=== PATIENT | female | born 1945 | race Caucasian/White ===

== ENCOUNTER 2023-01-10 09:21 | Day surgery (SDC) | payer MEDICARE, SELFPAY ==
[2023-01-04 14:06] VITALS: BMI 29.2
--- NOTE | 2023-01-07 08:11 | MHC.SHP ---
Pre-Procedural Eval Section A Date of Service: 01/07/23 The patient is an INPATIENT: No Changes since office visit: No Cold of Flu in the past 2 weeks, No New Medical Problems, No Changes in Medication and No Patient answered all questions The History & Physical has been completed within 30 days and I have reviewed it.: Yes Section B Chief Complaint: Age-related nuclear cataract, right eye Allergies: Allergies Allergy/AdvReac Type Severity Reaction Status Date / Time tetracycline AdvReac Intermediate vomiting/di Verified 01/04/23 14:06 arrhea Plan Diagnosis/Plan: Unchanged I have reviewed the history and physical and performed a pertinent physical examination on my patient. No changes have occurred unless specified. Time Spent With Patient Time: Total time managing care of this patient today ____ minutes.
--- NOTE | 2023-01-07 09:33 | HO.ANESPROP2 ---
Documented by User: Jayne Zhang NP 01/07/23 09:35 HPI - Anesthesia Eval Consult details Narrative: 77yo F for Right Cataract Multifocal with IOL Insertion PCP cleared No previous cataract on record PMFSH Past Medical History Medical History Anxiety Breast cancer Elevated cholesterol Heartburn Herpes zoster retinitis HTN (hypertension) Hx of sigmoidoscopy IBS (irritable bowel syndrome) Insomnia Osteopenia Surgical History Surgical History H/O colonoscopy History of lumpectomy of left breast Hx of abdominal hysterectomy Hx of dilation and curettage Social History Social History Are you a primary health and social care teacher to a significant other at home: No Do you presently have visiting nurse or other home services: No Patient Tobacco Use Status: Never used Tobacco Use of substances other than those prescribed or required for medical reasons: No Have you been hit, kicked, punched, or otherwise hurt by someone within the past year? If so, by whom?: No Are you DNR?: Yes Advance Directives Information Provided: Yes (advised to bring copies DOS for [facility] [place] Advance Directives on File: No Recently lost weight without trying: No Eating poorly because of decreased appetite: No Nutrition Risks: No Nutritional Risk Poor oral hygiene: No Meds Allergies Allergy/AdvReac Type Severity Reaction Status Date / Time tetracycline AdvReac Intermediate vomiting/di Verified 01/04/23 14:06 arrhea Home Medications Medication Instructions Recorded Confirmed Last Taken Type amlodipine 5 mg tablet 5 mg PO DAILY 12/24/22 01/04/23 Unknown History coenzyme Q10 100 mg capsule (Co 100 mg PO DAILY 12/24/22 01/04/23 Unknown History Q-10) fluticasone propionate 50 1 spray intranasal BID 12/24/22 01/04/23 Unknown History mcg/actuation nasal spray,suspension lorazepam 0.5 mg tablet 0.5 mg PO BID 12/24/22 01/04/23 Unknown History omeprazole 20 mg capsule,delayed 20 mg PO DAILY 12/24/22 01/04/23 Unknown History release raloxifene 60 mg tablet (Evista) 60 mg PO DAILY 12/24/22 01/04/23 Unknown History Exam Exam Date and Time: January 07, 2023 0933 Height,Weight and Vital Signs: Height 5 ft 4 in Weight 77.111 kg Assessment and Plan Assessment Anesthesia Assessment: Chart Reviewed Documented by User: Yovani Shay MD 01/10/23 10:56 [facility] Past Medical History Medical History Anxiety Breast cancer Elevated cholesterol Heartburn Herpes zoster retinitis HTN (hypertension) Hx of sigmoidoscopy IBS (irritable bowel syndrome) Insomnia Osteopenia Family History Family history of problems with anesthesia: No Surgical History Surgical History H/O colonoscopy History of lumpectomy of left breast Hx of abdominal hysterectomy Hx of dilation and curettage History of Problems with Anesthesia: No Social History Social History Are you a primary health and social care teacher to a significant other at home: No Do you presently have visiting nurse or other home services: No Patient Tobacco Use Status: Never used Tobacco Use of substances other than those prescribed or required for medical reasons: No Have you been hit, kicked, punched, or otherwise hurt by someone within the past year? If so, by whom?: No Are you DNR?: Yes Advance Directives Information Provided: Yes (advised to bring copies DOS for [facility] [place]) Advance Directives on File: No Recently lost weight without trying: No Eating poorly because of decreased appetite: No Nutrition Risks: No Nutritional Risk Poor oral hygiene: No Meds Allergies Allergy/AdvReac Type Severity Reaction Status Date / Time tetracycline AdvReac Intermediate vomiting/di Verified 01/04/23 14:06 [facility] Home Medications Medication Instructions Recorded Confirmed Last Taken Type amlodipine 5 mg tablet 5 mg PO DAILY 12/24/22 01/04/23 Unknown History coenzyme Q10 100 mg capsule (Co 100 mg PO DAILY 12/24/22 01/04/23 Unknown History Q-10) fluticasone propionate 50 1 spray intranasal BID 12/24/22 01/04/23 Unknown History mcg/actuation nasal spray,suspension lorazepam 0.5 mg tablet 0.5 mg PO BID 12/24/22 01/04/23 Unknown History omeprazole 20 mg capsule,delayed 20 mg PO DAILY 12/24/22 01/04/23 Unknown History release raloxifene 60 mg tablet (Evista) 60 mg PO DAILY 12/24/22 01/04/23 Unknown History Exam Airway Mallampati Class: II TM Dist: >3cm Neck ROM: Full Loose/Missing/Broken Teeth: No Heart: rrr+[id number] Lungs: cta b/l Assessment and Plan Assessment Anesthesia Assessment: Anesthesia Plan Discussed Final Anesthetic Review Family History of Problems with Anesthesia: No History of Problems with Anesthesia: No NPO: Yes ASA Class: III Final Preanesthetic Review: No Changes in Pt Med Stat, Meds/Allgs Chart Reviewed, Consent Obtained/Reviewed, Anes Risks/Benef Reviewed and DNR Form (If Appl.) Patient Risk: Intermediate Procedure Risk: Low Assessment/Block/Sedation in SS: Assess/Block/Sedation-SS Anesthetic Plan Anesthetic Plan: MAC: and Agree w/ Assess. and Plan Disposition: Standard PACU
[2023-01-10 10:56] VITALS: BP 166/77; PULSE 102; RESP 18; TEMP 36.7; O2SAT 98
[2023-01-10] MEDS: Lactated Ringers 500 ML 50 ML IV (10:58)
[2023-01-10] MEDS: Tropicamide 1 % Ophth Sol 3 ML BTL 1 DROP EYE-RIGHT ×3 (11:00→11:05)
[2023-01-10] MEDS: Tetracaine HCl/PF 0.5% Oph Sol 4 ML DROPS 1 DROP EYE-RIGHT (11:00)
[2023-01-10] MEDS: Phenylephrine HCL 2.5% Oph SoL 2 ML BOTTLE 1 DROP EYE-RIGHT ×3 (11:00→11:04)
[2023-01-10] MEDS: Cyclopentolate 1 % Ophth Sol 2 ML DRPBTL 1 DROP EYE-RIGHT ×3 (11:00→11:05)
[2023-01-10] MEDS: Ketorolac Tromethamine 0.5% Op 5 ML DROPS 1 DROP EYE-RIGHT ×3 (11:00→11:04)
--- NOTE | 2023-01-10 11:34 | HO.PNOPHT ---
Ophthalmology Procedure Procedure Date of Service: 01/10/23 Ophthalmology Viscoelastic: Tommy Morint Dual Pack Pro Ophthalmology Lenses: TECMILDRED [id number] (24) Procedure Notes: PREOPERATIVE DIAGNOSIS: Decreased visual acuity right eye secondary to cataract POSTOPERATIVE DIAGNOSIS: Same PROCEDURE: Right cataract extraction with intraocular lens insertion SURGEON: Akil Stanton M.D. ANESTHESIA: Topical/MAC ESTIMATED BLOOD LOSS: None COMPLICATIONS: None After obtaining informed consent, the patient was brought to the operating room suite and placed in the supine position. After adequate sedation per anesthesia, topical drops of Tetracaine were given to the right eye. The eye was then prepped and draped in the usual sterile fashion. The operating room microscope was then positioned over the operative eye and a lid speculum placed. A paracentesis was created. Viscoelastic was then instilled into the anterior chamber. A three plane incision was then created temporally, utilizing a 2.85 mm keratome. Capsulotomy forceps were then utilized to create a circular tear capsulotomy. Hydrodissection and hydrodelineation were carried out until adequate mobilization of the nucleus occurred. Phacoemulsification was then utilized to remove the dense central nucleus followed by removal of the cortical material utilizing the automated aspiration irrigation unit. Viscoelastic was instilled into the posterior capsular bag followed by placement of a posterior chamber intraocular lens without difficulty. The residual Viscoelastic was then removed utilizing the automated IA machine. The wound was checked and found to be watertight. The patient tolerated the procedure well and the lid speculum was removed. Intracameral injection of Vigamox 0.1 mL followed by a subtenon injection of Kenalog-40 0.2 mL were administered. The patient will be seen in the a.m.
[2023-01-10 11:56] VITALS: BP 145/71; PULSE 89; RESP 16; TEMP 36.2; O2SAT 97
== END 2023-01-10 11:59 | disposition home or self-care (01) ==
PROVIDERS: PCP Family Medicine; Visit Provider Ophthalmology
PROC: (CPT 66985; principal; 2023-01-10 12:30)
DX: H25.11 Age-related nuclear cataract, right eye (principal); H52.4 Presbyopia; H40.051 Ocular hypertension, right eye; H17.9 Unspecified corneal scar and opacity; E78.00 Pure hypercholesterolemia, unspecified; I10 Essential (primary) hypertension; C50.412 Malignant neoplasm of upper-outer quadrant of left female breast; Z17.1 Estrogen receptor negative status [ER-]; M19.90 Unspecified osteoarthritis, unspecified site; M81.0 Age-related osteoporosis without current pathological fracture; L71.9 Rosacea, unspecified; F41.1 Generalized anxiety disorder; Z79.810 Long term (current) use of selective estrogen receptor modulators (SERMs); Z79.51 Long term (current) use of inhaled steroids; Z79.899 Other long term (current) drug therapy; Z88.1 Allergy status to other antibiotic agents; H18.413 Arcus senilis, bilateral
CPT/HCPCS: 66984; J2250; J3301; V2632

== ENCOUNTER 2023-01-24 09:27 | Day surgery (SDC) | payer MEDICARE, SELFPAY ==
[2023-01-04 14:08] VITALS: BMI 29.2
--- NOTE | 2023-01-20 14:59 | P.CONAN_ITS ---
Documented by User: Jayne Zhang NP 01/20/23 15:00 HPI - Anesthesia Eval Consult details Narrative: 77yo F for Left Cataract Multifocal with IOL Insertion PCP cleared Right eye 01/10/23 with MAC: midaz 1 PMFSH Past Medical History Medical History Anxiety Breast cancer Elevated cholesterol Heartburn Herpes zoster retinitis HTN (hypertension) Hx of sigmoidoscopy IBS (irritable bowel syndrome) Insomnia Osteopenia Family History Family history of problems with anesthesia: No Surgical History Surgical History H/O colonoscopy History of lumpectomy of left breast Hx of abdominal hysterectomy Hx of dilation and curettage History of Problems with Anesthesia: No Social History Social History Are you a primary adult care provider to a significant other at home: No Do you presently have visiting nurse or other home services: No Patient Tobacco Use Status: Never used Tobacco Use of substances other than those prescribed or required for medical reasons: No Have you been hit, kicked, punched, or otherwise hurt by someone within the past year? If so, by whom?: No Are you DNR?: Yes Advance Directives Information Provided: Yes (advised to bring copies DOS for [facility] chart) Advance Directives on File: No Recently lost weight without trying: No Eating poorly because of decreased appetite: No Nutrition Risks: No Nutritional Risk Poor oral hygiene: No Meds Allergies Allergy/AdvReac Type Severity Reaction Status Date / Time tetracycline AdvReac Intermediate vomiting/di Verified 01/24/23 09:50 arrhea Home Medications Medication Instructions Recorded Confirmed Last Taken Type amlodipine 5 mg tablet 5 mg PO DAILY 12/24/22 01/04/23 01/24/23 History coenzyme Q10 100 mg capsule (Co 100 mg PO DAILY 12/24/22 01/04/23 Unknown History Q-10) fluticasone propionate 50 1 spray intranasal BID 12/24/22 01/04/23 Unknown History mcg/actuation nasal spray,suspension lorazepam 0.5 mg tablet 0.5 mg PO BID 12/24/22 01/04/23 01/24/23 History omeprazole 20 mg capsule,delayed 20 mg PO DAILY 05/01/04/23 01/24/23 History release raloxifene 60 mg tablet (Evista) 60 mg PO DAILY 12/24/22 01/04/23 Unknown History Exam Exam Date and Time: January 20, 2023 145 Height,Weight and Vital Signs: Height 5 ft 4 in Weight 77.111 kg Assessment and Plan Assessment Anesthesia Assessment: Chart Reviewed Final Anesthetic Review Family History of Problems with Anesthesia: No History of Problems with Anesthesia: No Documented by User: Ben Wilks MD 01/24/23 10:02 [facility] Past Medical History Medical History Anxiety Breast cancer Elevated cholesterol Heartburn Herpes zoster retinitis HTN (hypertension) Hx of sigmoidoscopy IBS (irritable bowel syndrome) Insomnia Osteopenia Surgical History Surgical History H/O colonoscopy History of lumpectomy of left breast Hx of abdominal hysterectomy Hx of dilation and curettage Social History Social History Are you a primary adult care provider to a significant other at home: No Do you presently have visiting nurse or other home services: No Patient Tobacco Use Status: Never used Tobacco Use of substances other than those prescribed or required for medical reasons: No Have you been hit, kicked, punched, or otherwise hurt by someone within the past year? If so, by whom?: No Are you DNR?: Yes Advance Directives Information Provided: Yes (advised to bring copies DOS for [facility] chart) Advance Directives on File: No Recently lost weight without trying: No Eating poorly because of decreased appetite: No Nutrition Risks: No Nutritional Risk Poor oral hygiene: No Meds Allergies Allergy/AdvReac Type Severity Reaction Status Date / Time tetracycline AdvReac Intermediate vomiting/di Verified 01/24/23 09:50 arrhea Home Medications Medication Instructions Recorded Confirmed Last Taken Type amlodipine 5 mg tablet 5 mg PO DAILY 12/24/22 01/04/23 01/24/23 History coenzyme Q10 100 mg capsule (Co 100 mg PO DAILY 12/24/22 01/04/23 Unknown History Q-10) fluticasone propionate 50 1 spray intranasal BID 12/24/22 01/04/23 Unknown History mcg/actuation nasal spray,suspension lorazepam 0.5 mg tablet 0.5 mg PO BID 12/24/22 01/04/23 01/24/23 History omeprazole 20 mg capsule,delayed 20 mg PO DAILY 12/24/22 01/04/23 01/24/23 History release raloxifene 60 mg tablet (Evista) 60 mg PO DAILY 12/24/22 01/04/23 Unknown History Exam Airway Mallampati Class: II TM Dist: >3cm Neck ROM: Full Assessment and Plan Assessment Anesthesia Assessment: Anesthesia Plan Discussed Final Anesthetic Review NPO: Yes ASA Class: II Final Preanesthetic Review: No Changes in Pt Med Stat, Meds/Allgs Chart Reviewed, Consent Obtained/Reviewed and Anes Risks/Benef Reviewed Patient Risk: Low Procedure Risk: Low Anesthetic Plan Anesthetic Plan: MAC: Disposition: Standard PACU
--- NOTE | 2023-01-21 08:58 | MHC.SHP ---
Pre-Procedural Eval Section A Date of Service: 01/21/23 The patient is an INPATIENT: No Changes since office visit: No Cold of Flu in the past 2 weeks, No New Medical Problems, No Changes in Medication and No Patient answered all questions The History & Physical has been completed within 30 days and I have reviewed it.: Yes Section B Chief Complaint: Age-related nuclear cataract, left eye Allergies: Allergies Allergy/AdvReac Type Severity Reaction Status Date / Time tetracycline AdvReac Intermediate vomiting/di Verified 01/04/23 14:06 arrhea Plan Diagnosis/Plan: Unchanged I have reviewed the history and physical and performed a pertinent physical examination on my patient. No changes have occurred unless specified. Time Spent With Patient Time: Total time managing care of this patient today ____ minutes.
[2023-01-24 09:43] VITALS: BP 171/72; PULSE 82; RESP 16; TEMP 36.4; O2SAT 96
--- NOTE | 2023-01-24 09:49 | PC.NURSE ---
Patients health care proxy is her sister Shara Shelley. Phone number .
[2023-01-24] MEDS: Tetracaine HCl/PF 0.5% Oph Sol 4 ML DROPS 1 DROP EYE-LEFT (09:55)
[2023-01-24] MEDS: Cyclopentolate 1 % Ophth Sol 2 ML DRPBTL 1 DROP EYE-LEFT ×3 (09:56→10:12)
[2023-01-24] MEDS: Tropicamide 1 % Ophth Sol 3 ML BTL 1 DROP EYE-LEFT ×3 (09:58→10:14)
[2023-01-24] MEDS: Ketorolac Tromethamine 0.5% Op 5 ML DROPS 1 DROP EYE-LEFT ×3 (10:00→10:16)
[2023-01-24] MEDS: Phenylephrine HCL 2.5% Oph SoL 2 ML BOTTLE 1 DROP EYE-LEFT ×3 (10:02→10:18)
[2023-01-24] MEDS: Lactated Ringers 500 ML 50 ML IV (10:05)
--- NOTE | 2023-01-24 10:54 | HO.PNOPHT ---
Ophthalmology Procedure Procedure Date of Service: 01/24/23 Ophthalmology Viscoelastic: [employer] Morint Dual Pack Pro Ophthalmology Lenses: TECMILDRED [id number] (23.5) Procedure Notes: PREOPERATIVE DIAGNOSIS: Decreased visual acuity left eye secondary to cataract POSTOPERATIVE DIAGNOSIS: Same PROCEDURE: Left cataract extraction with intraocular lens insertion SURGEON: Akil Stanton M.D. ANESTHESIA: Topical/MAC ESTIMATED BLOOD LOSS: None COMPLICATIONS: None After obtaining informed consent, the patient was brought to the operation room suite and placed in the supine position. After adequate sedation per anesthesia, topical drops of Tetracaine were given to the left eye. The eye was then prepped and draped in the usual sterile fashion. The operating room microscope was then positioned over the operative eye and a lid speculum placed. A paracentesis was created. Viscoelastic was then instilled into the anterior chamber. A three plane incision was then created temporally, utilizing a 2.85 mm keratome. Capsulotomy forceps were then utilized to create a circular tear capsulotomy. Hydrodissection and hydrodelineation were carried out until adequate mobilization of the nucleus occurred. Phacoemulsification was then utilized to remove the dense central nucleus followed by removal of the cortical material utilizing the automated aspiration irrigation unit. Viscoat elastic was instilled into the posterior capsular bag followed by placement of a posterior chamber intraocular lens without difficulty. The residual Viscoat elastic was then removed utilizing the automated IA machine. The wound was check and found to be watertight. The patient tolerated the procedure well and the lid speculum was removed. Intracameral injection of Vigamox 0.1 mL followed by a subtenon injection of Kenalog-40 0.2 mL were administered. The patient will be seen in the a.m.
[2023-01-24 11:24] VITALS: BP 118/74; PULSE 75; RESP 18; TEMP 37; O2SAT 99
== END 2023-01-24 11:27 | disposition home or self-care (01) ==
PROVIDERS: PCP Family Medicine; Visit Provider Ophthalmology
PROC: (CPT 66985; principal; 2023-01-24 11:10)
DX: H25.12 Age-related nuclear cataract, left eye (principal); H52.4 Presbyopia; I10 Essential (primary) hypertension; H40.051 Ocular hypertension, right eye; E78.5 Hyperlipidemia, unspecified; H18.413 Arcus senilis, bilateral; H17.9 Unspecified corneal scar and opacity; B00.51 Herpesviral iridocyclitis; Z85.3 Personal history of malignant neoplasm of breast; Z79.899 Other long term (current) drug therapy; Z88.1 Allergy status to other antibiotic agents
CPT/HCPCS: 66984; J2250; J3301; V2632

== ENCOUNTER 2025-04-08 13:25 | Outpatient (AMB) | payer MEDICARE, SELFPAY ==
--- OUTSIDE RECORDS SUMMARY | 2025-04-08 15:42 | XMS_ITS | Patient Health Record ---
Author Organization [facility] Address [address] [place] [address] Support Name Relationship Address Phone BRADGHADA Guarantor Unknown [phone] Reason For Referral No Information Medications Medication SIG (Take, Route, Fr equency, Duration) Notes Start Date End Date Status Aspirin EC 81MG 1 ORAL daily; Duration: -3 Terry-MJ 012 Active Tamoxifen Citrate 10MG 1 ORAL twice beverley y; Duration: -3 Terry-MJ 08/30/2011 Active Problems Problem Type SNOMED Code ICD Code Onset Dates Problem Status W/U Status Risk Notes Problem Menopausal symptom (41185102) Symptomatic menopausal or female climacteric states (627.2) Active confirmed Major Problem Gynecological examination normal (342044136106938) Routine gynecological examination (V72.31) Active confirmed Major Problem Screening for malignant neoplasm of colon (644691957) Special screening for malignant neoplasms, colon (V76.51) Active confirmed Major Plan Of Treatment No Information Insurance Providers Payer Name Payer Address Payer Phone Subscriber Number Group Number Insured Name Patient Relationship to Insured Coverage Start Date Coverage End Date [employer] [facility] [address] [place] [address] [id number] GHADA SALINAS Self - patient is the insured
== END 2025-04-08 13:38 | disposition home or self-care (01) ==
LOC: HO.HMGAL 13:25
PROVIDERS: PCP Family Medicine; Visit Provider Registered Nurse Emergency
DX: J30.89 Other allergic rhinitis (principal)
CPT/HCPCS: 95117; 95165

== ENCOUNTER 2025-04-15 13:04 | Outpatient (AMB) | payer MEDICARE, SELFPAY ==
--- OUTSIDE RECORDS SUMMARY | 2025-04-15 18:08 | XMS_ITS | Patient Health Record ---
Author Organization [facility] Address [address] [place] [address] Support Name Relationship Address Phone BRADGHADA Guarantor Unknown [phone] Reason For Referral No Information Medications Medication SIG (Take, Route, Fr equency, Duration) Notes Start Date End Date Status Aspirin EC 81MG 1 ORAL daily; Duration: -3 Terry-MJ 012 Active Tamoxifen Citrate 10MG 1 ORAL twice beverley y; Duration: -3 Terry-MJ 08/30/2011 Active Problems Problem Type SNOMED Code ICD Code Onset Dates Problem Status W/U Status Risk Notes Problem Menopausal symptom (97491459) Symptomatic menopausal or female climacteric states (627.2) Active confirmed Major Problem Gynecological examination normal (928059292347972) Routine gynecological examination (V72.31) Active confirmed Major Problem Screening for malignant neoplasm of colon (980950780) Special screening for malignant neoplasms, colon (V76.51) Active confirmed Major Plan Of Treatment No Information Insurance Providers Payer Name Payer Address Payer Phone Subscriber Number Group Number Insured Name Patient Relationship to Insured Coverage Start Date Coverage End Date [employer]AGE [facility] [address] [place] [address] [id number] GHADA SALINAS Self - patient is the insured
== END 2025-04-15 13:05 | disposition home or self-care (01) ==
LOC: HO.HMGAL 13:04
PROVIDERS: PCP Family Medicine; Visit Provider Registered Nurse Emergency
DX: J30.89 Other allergic rhinitis (principal)
CPT/HCPCS: 95117; 95165

== ENCOUNTER 2025-04-22 11:56 | Outpatient (AMB) | payer MEDICARE, SELFPAY ==
--- OUTSIDE RECORDS SUMMARY | 2025-04-22 14:39 | XMS_ITS | Patient Health Record ---
Author Organization [facility] Address [address] [place] [address] Support Name Relationship Address Phone BRADGHADA Guarantor Unknown [phone] Reason For Referral No Information Medications Medication SIG (Take, Route, Fr equency, Duration) Notes Start Date End Date Status Aspirin EC 81MG 1 ORAL daily; Duration: -3 Terry-MJ 012 Active Tamoxifen Citrate 10MG 1 ORAL twice beverley y; Duration: -3 Terry-MJ 08/30/2011 Active Problems Problem Type SNOMED Code ICD Code Onset Dates Problem Status W/U Status Risk Notes Problem Menopausal symptom (36118368) Symptomatic menopausal or female climacteric states (627.2) Active confirmed Major Problem Gynecological examination normal (106718011822806) Routine gynecological examination (V72.31) Active confirmed Major Problem Screening for malignant neoplasm of colon (900403925) Special screening for malignant neoplasms, colon (V76.51) Active confirmed Major Plan Of Treatment No Information Insurance Providers Payer Name Payer Address Payer Phone Subscriber Number Group Number Insured Name Patient Relationship to Insured Coverage Start Date Coverage End Date [employer]AGE [facility] [address] [place] [address] [id number] GHADA SALINAS Self - patient is the insured
== END 2025-04-22 11:59 | disposition home or self-care (01) ==
LOC: HO.HMGAL 11:56
PROVIDERS: PCP Family Medicine; Visit Provider Registered Nurse Emergency
DX: J30.89 Other allergic rhinitis (principal)
CPT/HCPCS: 95117; 95165

== ENCOUNTER 2025-05-06 13:38 | Outpatient (AMB) | payer MEDICARE, SELFPAY ==
--- OUTSIDE RECORDS SUMMARY | 2025-05-06 15:56 | XMS_ITS | Patient Health Record ---
Author Organization [facility] Address [address] [place] [address] Support Name Relationship Address Phone BRADGHADA Guarantor Unknown [phone] Reason For Referral No Information Medications Medication SIG (Take, Route, Fr equency, Duration) Notes Start Date End Date Status Aspirin EC 81MG 1 ORAL daily; Duration: -3 Terry-MJ 012 Active Tamoxifen Citrate 10MG 1 ORAL twice beverley y; Duration: -3 Terry-MJ 08/30/2011 Active Problems Problem Type SNOMED Code ICD Code Onset Dates Problem Status W/U Status Risk Notes Problem Menopausal symptom (09601225) Symptomatic menopausal or female climacteric states (627.2) Active confirmed Major Problem Gynecological examination normal (598466510850513) Routine gynecological examination (V72.31) Active confirmed Major Problem Screening for malignant neoplasm of colon (521358859) Special screening for malignant neoplasms, colon (V76.51) Active confirmed Major Plan Of Treatment No Information Insurance Providers Payer Name Payer Address Payer Phone Subscriber Number Group Number Insured Name Patient Relationship to Insured Coverage Start Date Coverage End Date [employer]AGE [facility] [address] [place] [address] [id number] GHADA SALINAS Self - patient is the insured
== END 2025-05-06 13:40 | disposition home or self-care (01) ==
LOC: HO.HMGAL 13:38
PROVIDERS: PCP Family Medicine; Visit Provider Registered Nurse Emergency
DX: J30.89 Other allergic rhinitis (principal)
CPT/HCPCS: 95117; 95165

== ENCOUNTER 2025-05-15 13:12 | Outpatient (AMB) | payer MEDICARE, SELFPAY ==
--- OUTSIDE RECORDS SUMMARY | 2025-05-09 10:20 | XMS_ITS | Encounter Summary ---
Author Organization [employer] Address [address] [place] [address] Care Team Providers Care Aircraft Fuselage Framer Name Role Phone Unavailable Primary Care Provider Unavailabl e Encounter Details Date Type Department Care Team (Late st Contact Info) Description 05/09/2025 10:[address] [facility] [address] [place] [address] Stacy Rosas RN Social History Tobacco Use Types Packs/Day Years Used Date Smoking Tobacco: Never Assessed Comments Unknown Sex and Gender Information Value Date Recorded Sex Assigned at Female 05/31/2022 10:39 AM EDT Legal Sex Female 10:39 AM EDT Gender Identity Female 05/31/2022 10:39 AM EDT Sexual Orientation Choose not to disclose 2021 10:39 AM EDT documented as of this encounter Progress Notes * Stacy Rosas RN - 05/09/2025 10:20 AM EDT Subjective Patient ID: Maia Grande is a 79 y.o. female who presents for COVID19 Vaccine. Pt here for COVID19 Vaccine. Per record and patient reporting indicate that patient has no allergies that contraindicate today's vaccinations. Vaccine administered in [facility]. Pt tolerated well, pt willstay for observation for 15minutes post vaccination for observation by nurse. documented in this encounter Plan of Treatment Not on file documented as of this encounter Visit Diagnoses Not on filedocumented in this encounter
--- OUTSIDE RECORDS SUMMARY | 2025-05-15 16:52 | XMS_ITS | Clinical Summary ---
Author Organization [employer] Address [address] [place] [address] Care Team Providers Care Managing Supervisor Name Role Phone Unavailable Primary Care Provider Unavailabl e Encounters Date Type Department Care Team Description 05/09/2025 10:20 AM EDT Immunization [facility] [address] [place], [place] [phone] Stacy Rosas RN from Last 3 Months Immunizations Immunization Administration Dates Next Due Pfizer Covid-19 Vaccine 12+ 05/09/2025 Social History Tobacco Use Types Packs/Day Years Used Date Smoking Tobacco: Never Assessed Comments Unknown Sex and Gender Information Value Date Recorded Sex Assigned at Female 05/31/2022 10:39 AM EDT Legal Sex Female 10:39 AM EDT Gender Identity Female 05/31/2022 10:39 AM EDT Sexual Orientation Choose not to disclose 2021 10:39 AM EDT Plan of Treatment Health Maintenance Due Date Last Done Comments Depression Screening 1944 SDOH Screening 1944 Alcohol/Substance Use Screening 1956 Tobacco Screening 1956 DTaP/Tdap/Td Vaccines (1 - Tdap) 10/12/1963 Pneumococcal Vaccine: 50+ Years (1 of 1 - PCV) 1994 RSV Patients and Patients Aged 60 years or older (1 - 1-dose 75+ series) 10/12/2019 Influenza Vaccine (#1) 2025 , 04/08/2020, 04/14/2019, Additional history exists COVID-19 Vaccine ( - season) 2025 05/09/2025, 05/08/2021, 09/25/2020, Additional history exists Zoster Vaccines Completed 07/02/2019, 05/01/2019 HIB Vaccines Aged Out No longer eligi ble based on patient's age to complete this topic HPV Vaccines Aged Out No longer eligi ble based on patient's age to complete this topic Hepatitis A Vaccines Aged Out No long er eligible based on patient's age to complete this topic Hepatitis B Vaccines Aged Out No long er eligible based on patient's age to complete this topic IPV Vaccines Aged Out No longer eligi ble based on patient's age to complete this topic Meningococcal B Vaccine Aged Out No l onger eligible based on patient's age to complete this topic Meningococcal Vaccine Aged Out No dwayne ramon eligible based on patient's age to complete this topic RSV under 20 months Aged Out No longe r eligible based on patient's age to complete this topic Rotavirus Vaccines Aged Out No longer eligible based on patient's age to complete this topic Insurance [employer]
--- OUTSIDE RECORDS SUMMARY | 2025-05-15 16:53 | XMS_ITS | Patient Health Record ---
Author Organization [facility] Address [address] [place] [address] Support Name Relationship Address Phone BRADGHADA Guarantor Unknown [phone] Reason For Referral No Information Medications Medication SIG (Take, Route, Fr equency, Duration) Notes Start Date End Date Status Aspirin EC 81MG 1 ORAL daily; Duration: -3 Terry-MJ 012 Active Tamoxifen Citrate 10MG 1 ORAL twice beverley y; Duration: -3 Terry-MJ 08/30/2011 Active Problems Problem Type SNOMED Code ICD Code Onset Dates Problem Status W/U Status Risk Notes Problem Menopausal symptom (41685885) Symptomatic menopausal or female climacteric states (627.2) Active confirmed Major Problem Gynecological examination normal (676066090984935) Routine gynecological examination (V72.31) Active confirmed Major Problem Screening for malignant neoplasm of colon (411670891) Special screening for malignant neoplasms, colon (V76.51) Active confirmed Major Plan Of Treatment No Information Insurance Providers Payer Name Payer Address Payer Phone Subscriber Number Group Number Insured Name Patient Relationship to Insured Coverage Start Date Coverage End Date [employer]AGE [facility] [address] [place] [address] [id number] GHADA SALINAS Self - patient is the insured
== END 2025-05-15 13:12 | disposition home or self-care (01) ==
LOC: HO.HMGAL 13:12
PROVIDERS: PCP Family Medicine; Visit Provider Registered Nurse Emergency
DX: J30.89 Other allergic rhinitis (principal)
CPT/HCPCS: 95117; 95165

== ENCOUNTER 2025-05-20 13:07 | Outpatient (AMB) | payer MEDICARE, SELFPAY | END 2025-05-20 13:07 | disposition home or self-care (01) | LOC: HO.HMGAL 13:07 | PROVIDERS: PCP Family Medicine; Visit Provider Registered Nurse Emergency | DX: J30.89 Other allergic rhinitis (principal) | CPT/HCPCS: 95117; 95165 ==

== ENCOUNTER 2025-05-27 11:08 | Outpatient (AMB) | payer MEDICARE, SELFPAY ==
--- OUTSIDE RECORDS SUMMARY | 2025-05-27 14:11 | XMS_ITS | Clinical Summary ---
Author Organization [employer] Address [address] [place] [address] Care Team Providers Care Riding Silks Custodian Name Role Phone Unavailable Primary Care Provider Unavailabl e Encounters Date Type Department Care Team Description 05/09/2025 10:20 AM EDT Immunization [facility] [address] [place], [place] [phone] Stacy Rosas RN from Last 3 Months [...]
--- OUTSIDE RECORDS SUMMARY | 2025-05-27 14:11 | XMS_ITS | Patient Health Record ---
Author Organization [facility] Address [address] [place] [address] Support Name Relationship Address Phone BRADGHADA Guarantor Unknown [phone] Reason For Referral No Information Medications Medication SIG (Take, Route, Fr equency, Duration) Notes Start Date End Date Status Aspirin EC 81MG 1 ORAL daily; Duration: -3 Terry-MJ 012 Active Tamoxifen Citrate 10MG 1 ORAL twice beverley y; Duration: -3 Terry-MJ 08/30/2011 Active Problems Problem Type SNOMED Code ICD Code Onset Dates Problem Status W/U Status Risk Notes Problem Menopausal symptom (86289673) Symptomatic menopausal or female climacteric states (627.2) Active confirmed Major Problem Gynecological examination normal (875168302416846) Routine gynecological examination (V72.31) Active confirmed Major Problem Screening for malignant neoplasm of colon (014860826) Special screening for malignant neoplasms, colon (V76.51) Active confirmed Major Plan Of Treatment No Information Insurance Providers Payer Name Payer Address Payer Phone Subscriber Number Group Number Insured Name Patient Relationship to Insured Coverage Start Date Coverage End Date [employer] MED[employer] ADVANTAGE [facility] [address] [place] [address] [id number] GHADA SALINAS Self - patient is the insured
== END 2025-05-27 11:09 | disposition home or self-care (01) ==
LOC: HO.HMGAL 11:08
PROVIDERS: PCP Family Medicine; Visit Provider Registered Nurse Emergency
DX: J30.89 Other allergic rhinitis (principal)
CPT/HCPCS: 95117; 95165

== ENCOUNTER 2025-06-03 13:06 | Outpatient (AMB) | payer MEDICARE, SELFPAY | END 2025-06-03 13:07 | disposition home or self-care (01) | LOC: HO.HMGAL 13:06 | PROVIDERS: PCP Family Medicine; Visit Provider Registered Nurse Emergency | DX: J30.89 Other allergic rhinitis (principal) | CPT/HCPCS: 95117; 95165 ==

== ENCOUNTER 2025-06-10 13:51 | Outpatient (AMB) | payer MEDICARE, SELFPAY ==
--- OUTSIDE RECORDS SUMMARY | 2025-06-10 16:07 | XMS_ITS | Clinical Summary ---
Author Organization [employer] Address [address] [facility] [address] [facility] 7[address] [place] [address] Care Team Providers Care Gasoline Plant Operator Name Role Phone Unavailable Primary Care Provider Unavailabl e Encounters Date Type Department Care Team Description 05/09/2025 10:20 AM EDT Immunization [facility] [address] [place], [place] [phone] Stacy Rosas RN from Last 3 Months [...]
== END 2025-06-10 13:52 | disposition home or self-care (01) ==
LOC: HO.HMGAL 13:51
PROVIDERS: PCP Family Medicine; Visit Provider Registered Nurse Emergency
DX: J30.89 Other allergic rhinitis (principal)
CPT/HCPCS: 95117; 95165

== ENCOUNTER 2025-06-17 10:50 | Outpatient (AMB) | payer MEDICARE, SELFPAY | END 2025-06-17 10:51 | disposition home or self-care (01) | LOC: HO.HMGAL 10:50 | PROVIDERS: PCP Family Medicine; Visit Provider Registered Nurse Emergency | DX: J30.89 Other allergic rhinitis (principal) | CPT/HCPCS: 95117; 95165 ==

== ENCOUNTER 2025-07-08 14:01 | Outpatient (AMB) | payer MEDICARE, SELFPAY ==
--- OUTSIDE RECORDS SUMMARY | 2025-07-08 22:49 | XMS_ITS | Clinical Summary ---
Author Organization [employer] Address [address] [facility] [place] [address] Care Team Providers Care Program Director/Morning Show Host Name Role Phone Unavailable Primary Care Provider Unavailabl e Encounters Date Type Department Care Team Description 05/09/2025 10:20 AM EDT Immunization [facility] [address] [place], [place] [phone] Stacy Rosas RN from Last 3 Months [...] Additional history exists COVID-19 Vaccine ( - 2024- season) 2025 05/09/2025, 05/08/2021, 09/25/2020, Additional history [...]
== END 2025-07-08 14:02 | disposition home or self-care (01) ==
LOC: HO.HMGAL 14:01
PROVIDERS: PCP Family Medicine; Visit Provider Registered Nurse Emergency
DX: J30.89 Other allergic rhinitis (principal)
CPT/HCPCS: 95117; 95165

== ENCOUNTER 2025-07-15 11:22 | Outpatient (AMB) | payer MEDICARE, SELFPAY | END 2025-07-15 11:22 | disposition home or self-care (01) | LOC: HO.HMGAL 11:22 | PROVIDERS: PCP Family Medicine; Visit Provider Registered Nurse Emergency | DX: J30.89 Other allergic rhinitis (principal) | CPT/HCPCS: 95117; 95165 ==

== ENCOUNTER 2025-07-22 13:06 | Outpatient (AMB) | payer MEDICARE, SELFPAY ==
--- OUTSIDE RECORDS SUMMARY | 2025-07-22 16:27 | XMS_ITS | Clinical Summary ---
Author Organization [employer] Address [address] [facility] [address] [place] [address] Care Team Providers Care Centrifugal Supervisor Name Role Phone Unavailable Primary Care Provider Unavailabl e Encounters Date Type Department Care Team Description 05/09/2025 10:20 AM EDT Immunization [facility] [address] [place], [place] [phone] Stacy Rosas RN from Last 3 Months [...]
--- OUTSIDE RECORDS SUMMARY | 2025-07-22 16:27 | XMS_ITS | Patient Health Record ---
Author Organization [facility] Address [address] [place] [address] Support Name Relationship Address Phone BRADGHADA Guarantor Unknown [phone] Reason For Referral No Information Medications Medication SIG (Take, Route, Fr equency, Duration) Notes Start Date End Date Status Aspirin EC 81MG 1 ORAL daily; Duration: -3 Terry-MJ 012 Active Tamoxifen Citrate 10MG 1 ORAL twice beverley y; Duration: -3 Terry-MJ 08/30/2011 Active Problems Problem Type SNOMED Code ICD Code Onset Dates Problem Status W/U Status Risk Notes Problem Menopausal symptom (98240835) Symptomatic menopausal or female climacteric states (627.2) Active confirmed Major Problem Gynecological examination normal (593212548093783) Routine gynecological examination (V72.31) Active confirmed Major Problem Screening for malignant neoplasm of colon (906347659) Special screening for malignant neoplasms, colon (V76.51) Active confirmed Major Plan Of Treatment No Information Insurance Providers Payer Name Payer Address Payer Phone Subscriber Number Group Number Insured Name Patient Relationship to Insured Coverage Start Date Coverage End Date [employer]AGE [facility] [address] [place] [address] [phone] [id number] GHADA SALINAS Self - patient is the insured
== END 2025-07-22 13:21 | disposition home or self-care (01) ==
LOC: HO.HMGAL 13:06
PROVIDERS: PCP Family Medicine; Visit Provider Registered Nurse Emergency
DX: J30.89 Other allergic rhinitis (principal)
CPT/HCPCS: 95117; 95165

== ENCOUNTER 2025-07-31 11:14 | Outpatient (AMB) | payer MEDICARE, SELFPAY ==
--- OUTSIDE RECORDS SUMMARY | 2025-07-31 12:48 | XMS_ITS | Clinical Summary ---
Author Organization [employer] Address [address] [address] [place] [address] Care Team Providers Care Astronomy Department Chair Name Role Phone Unavailable Primary Care Provider Unavailabl e Encounters Date Type Department Care Team Description 05/09/2025 10:20 AM EDT Immunization [facility] [address] [place], [place] [phone] Stacy Rosas RN from Last 3 Months [...]
--- OUTSIDE RECORDS SUMMARY | 2025-07-31 12:48 | XMS_ITS | Patient Health Record ---
Author Organization [facility] Address [address] [place] [address] Support Name Relationship Address Phone BRADGHADA Guarantor Unknown [phone] Reason For Referral No Information Medications Medication SIG (Take, Route, Fr equency, Duration) Notes Start Date End Date Status Aspirin EC 81MG 1 ORAL daily; Duration: -3 Terry-MJ 012 Active Tamoxifen Citrate 10MG 1 ORAL twice beverley y; Duration: -3 Terry-MJ 08/30/2011 Active Problems Problem Type SNOMED Code ICD Code Onset Dates Problem Status W/U Status Risk Notes Problem Menopausal symptom (58203369) Symptomatic menopausal or female climacteric states (627.2) Active confirmed Major Problem Gynecological examination normal (096829908790758) Routine gynecological examination (V72.31) Active confirmed Major Problem Screening for malignant neoplasm of colon (791101070) Special screening for malignant neoplasms, colon (V76.51) Active confirmed Major Plan Of Treatment No Information Insurance Providers Payer Name Payer Address Payer Phone Subscriber Number Group Number Insured Name Patient Relationship to Insured Coverage Start Date Coverage End Date [employer] MED[employer]AGE [facility] [address] [place] [address] [phone] [id number] GHADA SALINAS Self - patient is the insured
== END 2025-07-31 11:14 | disposition home or self-care (01) ==
LOC: HO.HMGAL 11:14
PROVIDERS: PCP Family Medicine; Visit Provider Registered Nurse Emergency
DX: J30.89 Other allergic rhinitis (principal)
CPT/HCPCS: 95117; 95165